=== PATIENT | male | born 1995 | race African-American/Black ===

== ENCOUNTER 2016-11-08 07:15 | Emergency (ER) | payer OTHER | END 2016-11-08 08:38 | disposition home or self-care (01) | LOC: FER 07:15 | DX: S83.92XA Sprain of unspecified site of left knee, initial encounter (principal); M25.461 Effusion, right knee; F17.210 Nicotine dependence, cigarettes, uncomplicated; Y04.0XXA Assault by unarmed brawl or fight, initial encounter | CPT/HCPCS: 73564; J1885 ==

== ENCOUNTER 2021-07-17 21:07 | Emergency (ER) | payer SELFPAY ==
[~2021-07-17 21:07] MED LIST: BACITRACIN TOP; KEFLEX500 MG PO; MOTRIN600 MG PO; NAPROXEN500 MG PO; SKELAXIN800 MG PO
[2021-07-17 22:21] LABS: BASOPHIL 0.3 % (0-2); EOSINOPHIL 4.1 % (0-5); HCT 44.5 % (42.0-52.0); HGB 15.3 g/dl (13.2-18.0); LYMPHOCYTE 23.2 % (15-48); MCH 27.8 pg (25.0-31.0); MCHC 34.4 g/dL (32.0-36.0); MCV 80.9 fL (78.0-100.0); MONOCYTE 6.2 % (0-12); MPV 9.9 fL (6.0-9.5); NEUTROPHIL 65.8 % (41-80); NRBC 0; PLT 237 K/uL (150-400); RDW 11.6 % (11.5-14.0); WBC 10.1 K/uL (4.0-10.5)
[2021-07-17 22:42] LABS: BUN/CREAT RATIO (CALC) 11.7 RATIO; CREATININE 0.94 mg/dL (0.67-1.17); POTASSIUM 3.7 mmol/L (3.5-5.1)
[2021-07-17 23:01] LABS: INFLUENZA A NAA NEGATIVE (NEGATIVE)
[2021-07-17 23:02] LABS: CORONAVIRUS 2019 SARS-COV-2 POSITIVE (NEGATIVE)
[2021-07-18] MEDS ORDERED: ONDANSETRON ODT4 MG PO (00:48)
== END 2021-07-18 01:08 | disposition home or self-care (01) ==
LOC: FER 21:07
PROVIDERS: Nurse Practitioner Family
DX: R07.89 Other chest pain (principal); U07.1 COVID-19
CPT/HCPCS: 36415; 71045; 80048; 84484; 85025; 93005; U0002

== ENCOUNTER 2021-09-18 13:09 | Emergency (ER) | payer OTHER ==
[~2021-09-18 13:09] MED LIST changes: +ONDANSETRON ODT4 MG PO
[2021-09-18 14:00] LABS: BASOPHIL 0.3 % (0-2); EOSINOPHIL 11.7 % (0-5); HCT 43.9 % (42.0-52.0); HGB 14.5 g/dl (13.2-18.0); LYMPHOCYTE 31.9 % (15-48); MCH 27.4 pg (25.0-31.0); MONOCYTE 7.7 % (0-12); MPV 10.4 fL (6.0-9.5); NEUTROPHIL 48.1 % (41-80); NRBC 0; PLT 193 K/uL (150-400); RBC 5.29 M/uL (4.70-6.00); RDW 12.3 % (11.5-14.0); WBC 6.7 K/uL (4.0-10.5)
[2021-09-18 14:31] LABS: BUN/CREAT RATIO (CALC) 10.2 RATIO; CREATININE 0.98 mg/dL (0.67-1.17); POTASSIUM 3.5 mmol/L (3.5-5.1)
== END 2021-09-18 16:50 | disposition home or self-care (01) ==
LOC: FER 13:09
PROVIDERS: Nurse Practitioner Family
DX: F41.9 Anxiety disorder, unspecified (principal); R07.89 Other chest pain; Z86.16 Personal history of COVID-19; Z28.310 Unvaccinated for COVID-19
CPT/HCPCS: 36415; 71045; 80048; 84484; 85025; 85379; 93005

== ENCOUNTER 2021-11-19 00:23 | Emergency (ER) | payer OTHER ==
[2021-11-19 01:29] LABS: BASOPHIL 0.3 % (0-2); EOSINOPHIL 7.6 % (0-5); HCT 43.6 % (42.0-52.0); HGB 14.2 g/dl (13.2-18.0); LYMPHOCYTE 39.7 % (15-48); MCH 27.4 pg (25.0-31.0); MCHC 32.6 g/dL (32.0-36.0); MONOCYTE 6.7 % (0-12); MPV 10.3 fL (6.0-9.5); NEUTROPHIL 45.3 % (41-80); NRBC 0; PLT 182 K/uL (150-400); RBC 5.19 M/uL (4.70-6.00); RDW 12.2 % (11.5-14.0); WBC 7.4 K/uL (4.0-10.5)
[2021-11-19 01:53] LABS: ALBUMIN 3.6 g/dL (3.4-5.0); BILIRUBIN - TOTAL 0.3 mg/dL (0.2-1.0); BUN/CREAT RATIO (CALC) 15.6 RATIO; CREATININE 0.9 mg/dL (0.67-1.17); GLOBULIN (CALCULATION) 2.9 g/dL; POTASSIUM 3.9 mmol/L (3.5-5.1); TOTAL PROTEIN 6.5 g/dL (6.4-8.2)
== END 2021-11-19 02:41 | disposition home or self-care (01) ==
LOC: FER 00:23
PROVIDERS: Emergency Medicine
DX: R07.89 Other chest pain (principal); F17.200 Nicotine dependence, unspecified, uncomplicated
CPT/HCPCS: 36415; 80053; 84484; 85025; 93005